=== PATIENT | male | born 1980 | race Caucasian/White ===

== ENCOUNTER → 2019-07-04 | Outpatient (CLI) | payer OTHER ==
[2019-07-05 02:07] LABS: RUBELLA AB IGG-REFLAB 13.3 index (Immune >0.99); RUBEOLA (MEASLES) IGG >300.0 AU/mL (Immune >16.4)
== END | disposition home or self-care (01) ==
LOC: PUC 16:05
DX: Z02.1 Encounter for pre-employment examination (principal)
CPT/HCPCS: 86317; 86735; 86762; 86765; 86787

== ENCOUNTER → 2019-07-12 | Outpatient (CLI) | payer OTHER | END | disposition home or self-care (01) | LOC: RADPV 11:07 | DX: R76.11 Nonspecific reaction to tuberculin skin test without active tuberculosis (principal) ==